=== PATIENT | male | born 1955 | race Caucasian/White ===

== ENCOUNTER 2017-10-21 06:02 | Day surgery (SDC) | payer MEDICAID ==
[2017-10-13 11:53] VITALS: BMI 25.1
--- NOTE | 2017-10-20 16:15 | P.GSHP ---
History of Present Illness H&P Date: 10/20/17 Chief Complaint: Left inguinal hernia 61 yrs old male presents with left inguinal bulge. No obstruction or skin changes. Prior hernia repair ROS Additionally reports: Constitutional: No fever, chills or rigors. No weight loss or loss of appetite. HEENT: No difficulty with hearing, vision and swallowing. Lymphatic: No axillary, inguinal and cervical swellings. Endocrine: No thyroid disorders. Denies history of diabetes. Respiratory: No chest pain, shortness of breath, and cough. No hemoptysis. Cardiovascular: No palpitations, irregular HR Gastrointestinal: Has heartburn. No change in bowel habits. No nausea or vomiting. Genitourinary: No increase in urinary frequency or urgency. No hematuria. Musculoskeletal: Has back pain, joint stiffness or pain. Neurologic: No history of seizure disorder and headaches. Psychiatric: Denies depression or anxiety . No suicidal ideation. Hematologic: Denies any abnormal mucosal bleeding or easy bruising. Physical Exam Patient is a 61-year-old male. Constitutional: General Appearance: healthy-appearing, well-nourished, and well- developed. Level of Distress: NAD. Ambulation: ambulating normally. Psychiatric: Insight: good judgement. Mental Status: normal mood and affect and active and alert. Orientation: to time, place, and person. Memory: recent memory normal and remote memory normal. Head: Head: normocephalic and atraumatic. Eyes: Lids and Conjunctivae: no discharge or pallor and non-injected. Pupils: PERRLA. EOM: EOMI. Sclerae: non-icteric. ENMT: Oropharynx: moist mucous membranes. Lungs: Respiratory effort: no dyspnea. Percussion: no dullness, flatness, or hyperresonance. Auscultation: no wheezing, rales/crackles, or rhonchi and breath sounds normal, good air movement, and CTA except as noted. Cardiovascular: Heart Auscultation: normal S1 and S2 and RRR. Abdomen: Bowel Sounds: normal. Inspection and Palpation: no tenderness, guarding , masses, rebound tenderness, or CVA tenderness and soft and non-distended. Liver: non-tender and no hepatomegaly. Spleen: non-tender and no splenomegaly. Hernia: inguinal L. Musculoskeletal:: Motor Strength and Tone: normal and normal tone. Joints, Bones , and Muscles: normal movement of all extremities. Extremities: no cyanosis or edema. Neurologic: Gait and Station: normal gait and station. Cranial Nerves: grossly intact. Skin: Inspection and palpation: no rash or lesions. Assessment / Plan 1. Left inguinal hernia 2. Informed consent obtained from the patient after explaining the risks, benefits and potential complications of laparoscopic inguinal hernia including bleeding, infection, bruising, DVT and recurrence and possibility of converting to open 3. Patient demonstrated understanding of the procedure and agreed to undergo robotic assist lap left inguinal hernia repair with mesh possible bilateral 4. Expected post op course discussed including no heavy lifting >10 lbs for 6 weeks post surgery Preop orders: 1. Ancef 2 gm IVPB x1 2. Bilateral lower extremity SCDs 3. Heparin 5000 Units SQ injection x1 Past Medical History Past Medical History: Cancer, GERD/Reflux, Hypertension, Sleep Apnea/CPAP/BIPAP Additional Past Medical History / Comment(s): hx. prostate cancer 2008, DDD, had surg. for sleep apnea History of Any Multi-Drug Resistant Organisms: None Reported Past Surgical History: Appendectomy, Hernia Repair, Orthopedic Surgery, Prostate Surgery, Tonsillectomy Additional Past Surgical History / Comment(s): UPP for sleep apnea, radical prostatectomy, urethral sling, thumb surg., deviated septum Past Anesthesia/Blood Transfusion Reactions: No Reported Reaction Smoking Status: Former smoker - Past Family History Father Family Medical History: Cancer Mother Family Medical History: Congestive Heart Failure (CHF), CVA/TIA Medications and Allergies Home Medications Medication Instructions Recorded Confirmed Type Ascorbic Acid [Vitamin C] 500 mg PO DAILY 10/13/17 10/21/17 History Cholecalciferol [Vitamin D3] 1,000 unit PO DAILY 10/13/17 10/21/17 History Cyanocobalamin [Vitamin B-12] 500 mcg PO DAILY 10/13/17 10/21/17 History Losartan [Cozaar] 25 mg PO DAILY 10/13/17 10/21/17 History Docusate [Colace] 100 mg PO BID #30 capsule 10/19/17 Rx Hydrocodone/Acetaminophen [[place] 1 each PO Q6HR PRN #20 tab 10/19/17 Rx 5-325] Allergies Allergy/AdvReac Type Severity Reaction Status Date / Time No Known Allergies Allergy Verified 10/13/17 11:09
[~2017-10-21 06:02] MED LIST: HEPARIN SODIUM,PORCINE 5,000 UNIT/ML 1 ML VIAL SQ ONE; HYDROmorphone 0.5 MG/0.5 ML SYRINGE IVP PRN; MORPHINE SULFATE 4 MG/ML SYRINGE IV PRN; ceFAZolin IN SWFI 2 GM/20 ML SYRINGE IVP ONE
[2017-10-21 06:34] VITALS: RESP 16
[2017-10-21] MEDS ORDERED: LIDOCAINE 1% 20 ML VIAL (10MG/ML) FOR IV START INTRADERMA ONE (06:56)
[2017-10-21] MEDS: LACTATED RINGERS 1,000 ML IV SCH ×2 (06:57→06:58)
[2017-10-21] MEDS ORDERED: DEXAMETHASONE SOD PHOSPHATE 10 MG/ML 1 ML VIAL IV ONE (06:58)
[2017-10-21] MEDS ORDERED: SCOPOLAMINE 1.5MG/72HR PATCH TRANSDERM ONE (07:00)
[2017-10-21] MEDS ORDERED: ONDANSETRON 4 MG/2 ML VIAL IVP ONE (07:00)
[2017-10-21] MEDS ORDERED: ePHEDrine SULFATE/0.9% NACL/PF 50 MG/5 ML SYRINGE IV ONE (07:34)
[2017-10-21] MEDS ORDERED: fentaNYL (PF) 50 MCG/ML 2 ML AMP ONE (07:34)
[2017-10-21] MEDS ORDERED: ROCURONIUM BROMIDE 10 MG/ML 10 ML VIAL IV ONE (07:34)
[2017-10-21] MEDS ORDERED: SUCCINYLCHOLINE CHLORIDE 100 MG/5 ML SYR IV ONE (07:34)
[2017-10-21] MEDS ORDERED: MIDAZOLAM 2 MG/2 ML VIAL ONE (07:34)
[2017-10-21] MEDS ORDERED: NEOSTIGMINE 1 MG/ML 10 ML VIAL ONE (07:34)
[2017-10-21] MEDS ORDERED: GLYCOPYRROLATE 0.2 MG/ML 2 ML VIAL ONE (07:34)
[2017-10-21] MEDS ORDERED: LIDOCAINE 1% INJ 10MG/ML (20 ML MDV) ONE (07:34)
[2017-10-21] MEDS ORDERED: PROPOFOL 10 MG/ML 20 ML VIAL IV ONE (07:34)
[2017-10-21 07:51] LABS: Anion Gap 11 mmol/L; Blood Urea Nitrogen 15 mg/dL (9-20); Calcium 10.2 mg/dL (8.4-10.2); Carbon Dioxide 23 mmol/L (22-30); Chloride 108 mmol/L (98-107); Glucose 102 mg/dL (74-99); Potassium 4.3 mmol/L (3.5-5.1); Sodium 142 mmol/L (137-145)
[2017-10-21] MEDS ORDERED: BUPIVACAINE (PF) 0.25% 30 ML VIAL SQ ONE ×2 (08:24)
[2017-10-21 08:31] LABS: Basophils # (A) 0.1 k/uL (0-0.2); Basophils % (A) 1 %; Eosinophils # (A) 0.2 k/uL (0-0.7); Eosinophils % (A) 4 %; HCT 39.6 % (39.0-53.0); HGB 13.6 gm/dL (13.0-17.5); Lymphocytes # (A) 1.6 k/uL (1.0-4.8); Lymphocytes % (A) 27 %; MCH 29.8 pg (25.0-35.0); MCHC 34.4 g/dL (31.0-37.0); MCV 86.6 fL (80.0-100.0); Mean Platelet Volume 6.9; Monocytes # (A) 0.3 k/uL (0-1.0); Monocytes % (A) 5 %; Neutrophils # (A) 3.6 k/uL (1.3-7.7); Neutrophils % (A) 61 %; Platelet Count 156 k/uL (150-450); RBC 4.57 m/uL (4.30-5.90); RDW 13.2 % (11.5-15.5); WBC 5.9 k/uL (3.8-10.6)
[2017-10-21] MEDS ORDERED: LACTATED RINGERS 1,000 ML IV ONE (09:25)
[2017-10-21 10:14] VITALS: TEMP 97.2
--- NOTE | 2017-10-21 10:40 | P.OP ---
Date of Procedure: 10/21/17 Preoperative Diagnosis: Left inguinal hernia H/O prostate cancer S/P radical nephrectomy H/O urinary incontinence S/P bladder sling Postoperative Diagnosis: Same Procedure(s) Performed: Robotic assist laparoscopic left inguinal hernia repair, initial, no obstruction or incarceration with mesh Implants: COVIDIEN PROGRIP 10 x 15 cm Reference #[id number] Lot number # [id number] Anesthesia: GETA, local Surgeon: Jessica Lui Pathology: none sent Condition: stable Disposition: PACU Indications for Procedure: 61 years old male presents with left reducible inguinal hernia. Informed consent obtained and patient elected to undergo robotic-assisted laparoscopic left inguinal hernia repair possible bilateral. Operative Findings: Left indirect inguinal hernia Description of Procedure: The patient was brought to the operating room and placed in supine position. General anesthesia with endotracheal intubation was performed as per anesthesia team. Both arms were tucked against the abdominal wall and a shunt was positioned in lithotomy using yellowfin stirrups. A azevedo catheter was inserted under sterile aseptic precautions. Chlorhexidine was used to prep the skin followed by application of sterile drapes and Ioban dressing. A timeout was performed to verify correct patient, correct procedure and correct side. Patient was confirmed to receive perioperative IV antibiotics, subcutaneous heparin 5000 units and bilateral SCDs were placed. A 2 mm skin incision was made in the left subcostal area and Veress needle was inserted to establish pneumoperitoneum to a pressure of 15 mmHg. A 1.5 cm supraumbilical incision was made which was deepened through the subcutaneous tissue . Two additional 8 mm skin incisions were made on either side of the midline approximately 8 cm away. A 5 mm 30 laparoscope was used to enter the peritoneum using direct Optiview technique. A 12 mm robotic trocar was inserted in the supraumbilical area and 8 mm robotic trocars were inserted on either side of the midline. The patient was placed in Trendelenburg position and the robot was brought in between the legs. The robotic arms including the camera arm were docked on the trocars. The robotic prograsp and monopolar scissors were introduced via arm 1 and 2 respectively. Upon inspection of the peritoneal cavity, left indirect inguinal hernia was identified. The sigmoid colon was adhered to the hernia and was reduced using gentle traction and countertraction.The gold anatomical landmarks including the pubic symphysis, median and medial umbilical ligaments and bilateral epigastric vessels were identified. Using monopolar scissors a peritoneal flap was created extending medially from the median umbilical ligament and laterally to the direct hernia space. Using gentle traction and countertraction the flap was developed . Loose fibrofatty tissue was bluntly dissected. Medially the dissection was carried along the Alfredo's ligament till pubic tubercle was identified. Care was taken to stay away from the urinary bladder. Adhesions from prior surgery which as easily dissected. Dissection was carried out to leave the epigastric vessels against the anterior abdominal wall and laterally beyond the hernia defect. The indirect hernia sac was completely reduced. The iliofemoral vessels were identified. The peritoneal reflection overlying the spermatic cord was also dissected off. Care was taken not to injure any gonadal vessels or spermatic cord. Enough inferior dissection was carried out 2 cm below the hernia defect. No direct hernia noted. 10x15 cm Progrip mesh was rolled and introduced through the 12mm camera port. The right mesh was placed in the preperitoneal cavity with green portion overlying the pubic tubercle . The mesh was rolled upwards so that the mesh covered the direct , indirect inguinal hernia and the femoral hernia space without any kinks or folds. The peritoneal flap was then sutured to the cut edge of the peritoneum using continuous 3-0 Vicryl sutures. The hernia sac was completely reduced and the mesh lay flat without any kinks or folds. The robotic arms were then undocked and 30 degree laparoscope was inserted. All the needles were removed from the abdominal cavity. The 8mm camera trocar site was closed with 2 transfascial sutures of 0 Vicryl. The sponge, instrument and needle count were correct x2. The skin was closed with interrupted sutures of 4-0 Monocryl. Dermabond skin glue was applied. Azevedo catheter was removed and scrotum was palpated to confirm the position of the testicles. The patient tolerated the procedure well and was taken to post anesthesia care unit in stable condition
--- NOTE | 2017-10-21 11:27 | P.ONQ ---
Anesthesiology Proc Note - PNB - Peripheral Nerve Block Performed Left Other (see comment) Single Time Out Performed: Yes (Left Transverse Abdominis Plane Block) Procedure Start Time: 11:12 Procedure Stop Time: :21 Indication: Acute Post-Operative Pain, Requested by physician Sedation Type: Sedate with meaningful contact maintained Preparation: Sterile Prep Catheter: None Needle Types: Facet Needle Size: 50mm (2") Needle Gauge: 21 Technique: Ultrasound Injectate: 0.5% Ropivacaine (see comment for volume) (30 mls Ropivacaine 0.5%) Blood Aspirated: No Pain Paresthesia on Injection Noted: No Resistance on Injection: Normal Events: Uneventful and Well Tolerated
[2017-10-21 12:09] VITALS: BP 138/83; PULSE 70
== END 2017-10-21 12:49 | disposition home or self-care (01) ==
LOC: OR 06:02 → EDSTATUS 07:30 → OR 12:49
PROVIDERS: ATTEND Surgery
DX: K40.90 Unilateral inguinal hernia, without obstruction or gangrene, not specified as recurrent (principal); Z85.46 Personal history of malignant neoplasm of prostate; Z90.79 Acquired absence of other genital organ(s); Z90.5 Acquired absence of kidney; Z87.448 Personal history of other diseases of urinary system; I10 Essential (primary) hypertension; K21.9 Gastro-esophageal reflux disease without esophagitis; G47.30 Sleep apnea, unspecified; Z79.899 Other long term (current) drug therapy; Z87.891 Personal history of nicotine dependence
CPT/HCPCS: 80048; 85025; 49650; C1781; J2250; J1644; J1100; J2710; J2405; J2001; J3010; J0330; J2704

== ENCOUNTER 2018-01-06 07:57 | Emergency (ER) | payer MEDICAID ==
[2018-01-06] MEDS ORDERED: SODIUM CHLORIDE 0.9% 500 ML IV STA (08:10)
--- NOTE | 2018-01-06 08:13 | ED ---
General Adult HPI - General Chief complaint: Weakness Stated complaint: Dizziness Time Seen by Provider: 01/06/18 08:03 Source: patient, RN notes reviewed Mode of arrival: ambulatory Limitations: no limitations - History of Present Illness Initial comments: 62-year-old male presenting for evaluation of lightheadedness. Patient states he feels like he had too much alcohol. Checked his blood pressure at home and noted that his blood pressures in the 180s over 110s. He is concerned because his recently had a stroke and is currently going through rehab. Patient does have past medical history of hypertension, he is currently on losartan, also he takes baby aspirin. Other than hypertension, no significant medical problems. States he's had some blurry vision. No headache. No chest pain. No abdominal pain. No difficulty breathing. No vomiting or diarrhea. No fever or chills. Patient denies any numbness or tingling, no focal weakness. - Related Data Home Medications Medication Instructions Recorded Confirmed Ascorbic Acid [Vitamin C] 500 mg PO DAILY 10/13/17 01/06/18 Cholecalciferol [Vitamin D3] 1,000 unit PO DAILY 10/13/17 01/06/18 Cyanocobalamin [Vitamin B-12] 500 mcg PO DAILY 10/13/17 01/06/18 Losartan [Cozaar] 25 mg PO DAILY 10/13/17 01/06/18 Aspirin EC [Ecotrin Low Dose] 81 mg PO DAILY 01/06/18 01/06/18 [place]-3 Fatty Acids/Fish Oil [Fish 1 cap PO DAILY 01/06/18 01/06/18 Oil 1,000 mg Softgel] Previous Rx's Medication Instructions Recorded Losartan [Cozaar] 50 mg PO DAILY #30 tab 01/06/18 Allergies Allergy/AdvReac Type Severity Reaction Status Date / Time No Known Allergies Allergy Verified 01/06/18 08:27 Review of Systems ROS Statement: Those systems with pertinent positive or pertinent negative responses have been documented in the HPI. ROS Other: All systems not noted in ROS Statement are negative. Past Medical History Past Medical History: Cancer, GERD/Reflux, Hypertension, Sleep Apnea/CPAP/BIPAP Additional Past Medical History / Comment(s): hx. prostate cancer 2008, DDD, had surg. for sleep apnea History of Any Multi-Drug Resistant Organisms: None Reported Past Surgical History: Appendectomy, Hernia Repair, Orthopedic Surgery, Prostate Surgery, Tonsillectomy Additional Past Surgical History / Comment(s): UPP for sleep apnea, radical prostatectomy, urethral sling, thumb surg., deviated septum Past Anesthesia/Blood Transfusion Reactions: No Reported Reaction Past Psychological History: No Psychological Hx Reported Smoking Status: Former smoker Past Alcohol Use History: None Reported, Daily Past Drug Use History: None Reported - Past Family History Father Family Medical History: Cancer Mother Family Medical History: Congestive Heart Failure (CHF), CVA/TIA General Exam Limitations: no limitations General appearance: alert, in no apparent distress Head exam: Present: atraumatic, normocephalic Eye exam: Present: normal appearance, PERRL, EOMI. Absent: nystagmus ENT exam: Present: normal exam Neck exam: Present: normal inspection. Absent: tenderness, meningismus Respiratory exam: Present: normal lung sounds bilaterally. Absent: respiratory distress, wheezes Cardiovascular Exam: Present: regular rate, normal rhythm GI/Abdominal exam: Present: soft. Absent: distended, tenderness, guarding Extremities exam: Present: normal inspection, normal capillary refill. Absent: pedal edema Neurological exam: Present: alert, oriented X3, CN II-XII intact, normal gait, other (No ataxia). Absent: motor sensory deficit Psychiatric exam: Present: normal affect, normal mood, anxious Skin exam: Present: warm, dry, intact. Absent: cyanosis, diaphoretic Course Vital Signs 01/06/18 01/06/18 08:00 09:22 Temperature 98.1 F Pulse Rate 82 62 Respiratory 18 16 Rate Blood Pressure 240/111 178/87 O2 Sat by Pulse 99 100 Oximetry EKG Findings - EKG Comments: EKG Findings:: EKG, sinus bradycardia, ventricular rate of 56, [place] interval 182, QRS duration 118, QTC [address] segment elevation or depression Medical Decision Making - Medical Decision Making 62-year-old male presenting with elevated blood pressure and some dizziness. Patient's exam is nonrevealing. Nonfocal neurologic exam. He is overall well- appearing. Patient's blood pressure is quite elevated 240/110 on arrival. This is down trending with no specific treatment, repeat is 178 systolic. Laboratory studies are obtained, white blood cell count normal, stable hemoglobin, normal electrolytes. Troponin is negative. Chest x-ray is negative for focal pneumonia, normal mediastinum. CT shows chronic small vessel ischemia with no acute cranial hemorrhage or acute pathology. Patient is given additional 25 mg of losartan. He will be switched from 25 mg to 50 mg daily. He will maintain a blood pressure log and follow up with his primary care physician. Repeat blood pressure 157/86 - Lab Data Result diagrams: 01/06/18 08:27 01/06/18 08:27 Lab Results 01/06/18 01/06/18 01/06/18 Range/Units 08:27 08:27 08:27 WBC 5.9 (3.8-10.6) k/uL RBC 5.18 (4.30-5.90) m/uL Hgb 14.8 (13.0-17.5) gm/dL Hct 40.5 (39.0-53.0) % MCV 78.2 L (80.0-100.0) fL MCH 28.6 (25.0-35.0) pg MCHC 36.6 (31.0-37.0) g/dL RDW 12.8 (11.5-15.5) % Plt Count 203 (150-450) k/uL Neutrophils % 58 % Lymphocytes % 32 % Monocytes % 5 % Eosinophils % 3 % Basophils % 0 % Neutrophils # 3.5 (1.3-7.7) k/uL Lymphocytes # 1.9 (1.0-4.8) k/uL Monocytes # 0.3 (0-1.0) k/uL Eosinophils # 0.2 (0-0.7) k/uL Basophils # 0.0 (0-0.2) k/uL PT (9.0-12.0) sec INR (<1.2) APTT (22.0-30.0) sec Sodium 142 (137-145) mmol/L Potassium 4.5 (3.5-5.1) mmol/L Chloride 102 (98-107) mmol/L Carbon Dioxide 29 (22-30) mmol/L Anion Gap 11 mmol/L BUN 20 (9-20) mg/dL Creatinine 0.90 (0.66-1.25) mg/dL Est GFR (CKD-EPI)AfAm >90 (>60 ml/min/1.73 sqM) Est GFR (CKD-EPI)NonAf >90 (>60 ml/min/1.73 sqM) Glucose 109 H (74-99) mg/dL Plasma Lactic Acid Arnold (0.7-2.0) mmol/L Calcium 10.3 H (8.4-10.2) mg/dL Magnesium 1.9 (1.6-2.3) mg/dL Total Bilirubin 0.8 (0.2-1.3) mg/dL AST 26 (17-59) U/L ALT 25 (21-72) U/L Alkaline Phosphatase 66 (38-126) U/L Total Creatine Kinase 94 (55-170) U/L CK-MB (CK-2) 1.4 (0.0-2.4) ng/mL CK-MB (CK-2) Rel Index 1.5 Troponin I <0.012 (0.000-0.034) ng/mL Total Protein 6.8 (6.3-8.2) g/dL Albumin 4.3 (3.5-5.0) g/dL 01/06/18 01/06/18 Range/Units 08:27 08:27 WBC (3.8-10.6) k/uL RBC (4.30-5.90) m/uL Hgb (13.0-17.5) gm/dL Hct (39.0-53.0) % MCV (80.0-100.0) fL MCH (25.0-35.0) pg MCHC (31.0-37.0) g/dL RDW (11.5-15.5) % Plt Count (150-450) k/uL Neutrophils % % Lymphocytes % % Monocytes % % Eosinophils % % Basophils % % Neutrophils # (1.3-7.7) k/uL Lymphocytes # (1.0-4.8) k/uL Monocytes # (0-1.0) k/uL Eosinophils # (0-0.7) k/uL Basophils # (0-0.2) k/uL PT 9.9 (9.0-12.0) sec INR 1.0 (<1.2) APTT 23.0 (22.0-30.0) sec Sodium (137-145) mmol/L Potassium (3.5-5.1) mmol/L Chloride (98-107) mmol/L Carbon Dioxide (22-30) mmol/L Anion Gap mmol/L BUN (9-20) mg/dL Creatinine (0.66-1.25) mg/dL Est GFR (CKD-EPI)AfAm (>60 ml/min/1.73 sqM) Est GFR (CKD-EPI)NonAf (>60 ml/min/1.73 sqM) Glucose (74-99) mg/dL Plasma Lactic Acid Arnold 1.6 (0.7-2.0) mmol/L Calcium (8.4-10.2) mg/dL Magnesium (1.6-2.3) mg/dL Total Bilirubin (0.2-1.3) mg/dL AST (17-59) U/L ALT (21-72) U/L Alkaline Phosphatase (38-126) U/L Total Creatine Kinase (55-170) U/L CK-MB (CK-2) (0.0-2.4) ng/mL CK-MB (CK-2) Rel Index Troponin I (0.000-0.034) ng/mL Total Protein (6.3-8.2) g/dL Albumin (3.5-5.0) g/dL Disposition Clinical Impression: Hypertension Disposition: HOME SELF-CARE Condition: Fair Instructions: Hypertension (ED) Prescriptions: Losartan [Cozaar] 50 mg PO DAILY #30 tab Referrals: Arian Oseguera MD [Primary Care Provider] - 1-2 days Time of Disposition: 10:21
[2018-01-06 08:39] LABS: Basophils % (A) 0 %; Eosinophils # (A) 0.2 k/uL (0-0.7); Eosinophils % (A) 3 %; HCT 40.5 % (39.0-53.0); HGB 14.8 gm/dL (13.0-17.5); Lymphocytes # (A) 1.9 k/uL (1.0-4.8); Lymphocytes % (A) 32 %; MCH 28.6 pg (25.0-35.0); MCHC 36.6 g/dL (31.0-37.0); MCV 78.2 fL (80.0-100.0); Mean Platelet Volume 6.6; Monocytes # (A) 0.3 k/uL (0-1.0); Monocytes % (A) 5 %; Neutrophils # (A) 3.5 k/uL (1.3-7.7); Neutrophils % (A) 58 %; Platelet Count 203 k/uL (150-450); RBC 5.18 m/uL (4.30-5.90); RDW 12.8 % (11.5-15.5); WBC 5.9 k/uL (3.8-10.6)
[2018-01-06 08:51] LABS: Prothrombin Time 9.9 sec (9.0-12.0)
[2018-01-06 08:53] LABS: ALT 25 U/L (21-72); AST 26 U/L (17-59); Albumin 4.3 g/dL (3.5-5.0); Alkaline Phosphatase 66 U/L (38-126); Anion Gap 11 mmol/L; Blood Urea Nitrogen 20 mg/dL (9-20); Calcium 10.3 mg/dL (8.4-10.2); Carbon Dioxide 29 mmol/L (22-30); Chloride 102 mmol/L (98-107); Glucose 109 mg/dL (74-99); Magnesium 1.9 mg/dL (1.6-2.3); Potassium 4.5 mmol/L (3.5-5.1); Sodium 142 mmol/L (137-145); Total Bilirubin 0.8 mg/dL (0.2-1.3); Total Protein 6.8 g/dL (6.3-8.2)
--- NOTE | 2018-01-06 08:58 | CT ---
EXAMINATION TYPE: CT brain wo con DATE OF EXAM: 01/06/2018 COMPARISON: NONE HISTORY: 62-year-old male Dizziness TECHNIQUE: Examination was done in axial plane without intravenous contrast. Coronal and sagittal r econstructions performed. CT DLP: 1090.4 mGycm Automated exposure control for dose reduction was used. FINDINGS: There is no evidence of acute intracranial hemorrhage, acute ischemic changes, mass, mass-effect, or extra-axial fluid collection. There is no effacement of cerebral sulci or basal subarachnoid cister ns. There is no hydrocephalus. There is no midline shift. Ramires-white matter distinction is preserv ed. Mild patchy white matter hypodensities likely relating to mild burden of chronic small vessel ischemi c disease. Partially empty sella incidentally noted. There is mucosal thickening left maxillary sinus. Patient's gaze is slightly divergent suggesting und erlying strabismus. IMPRESSION: No acute intracranial abnormality seen. Mild burden of chronic small vessel ischemic disease.
[2018-01-06 09:01] LABS: Creatine Kinase 94 U/L (55-170)
--- NOTE | 2018-01-06 09:10 | XR ---
EXAMINATION TYPE: XR chest 2V DATE OF EXAM: 01/06/2018 COMPARISON: 01/07/2009 INDICATION: Weakness, dizziness TECHNIQUE: Frontal and lateral views of the chest are obtained. FINDINGS: The heart size is normal. The pulmonary vasculature is normal. The lungs are clear. IMPRESSION: 1. No acute pulmonary process.
[2018-01-06 09:14] LABS: Creatine Kinase MB 1.4 ng/mL (0.0-2.4); Troponin I <0.012 ng/mL (0.000-0.034)
[2018-01-06 09:23] VITALS: RESP 16
[2018-01-06] MEDS ORDERED: LOSARTAN 25 MG TAB PO STA (09:53)
[2018-01-06 11:11] VITALS: BP 158/76; PULSE 78; TEMP 97.8
== END 2018-01-06 11:09 | disposition home or self-care (01) ==
LOC: EC 07:57
DX: I10 Essential (primary) hypertension (principal); I67.82 Cerebral ischemia; G47.30 Sleep apnea, unspecified; Z99.89 Dependence on other enabling machines and devices; Z85.46 Personal history of malignant neoplasm of prostate; Z87.891 Personal history of nicotine dependence; Z79.82 Long term (current) use of aspirin; Z79.899 Other long term (current) drug therapy
CPT/HCPCS: 36415; 70450; 71046; 80053; 82550; 82553; 83605; 83735; 84484; 85025; 85610; 85730; 93005; 96360; 96361; 99285

== ENCOUNTER → 2022-12-29 | Outpatient (CLI) | payer MEDICARE ==
--- NOTE | 2022-12-29 07:30 | US ---
EXAMINATION TYPE: US duplex aorta DATE OF EXAM: 12/29/2022 COMPARISON: NONE CLINICAL HISTORY: Z13.6 Screening for cardiovascular disorders. TECHNIQUE: Multiple sonographic images of the abdominal aorta are obtained. FINDINGS: EXAM MEASUREMENTS: Abdominal Aorta: Proximal: 2.3cm Mid: 1.9cm Distal: 1.8cm Bifurcation: EVELYN 1.1cm FELIX 1.0cm IMPRESSION: 1. No suspicious fusiform prominence or aneurysmal dilatation on screening ultrasound
== END | disposition home or self-care (01) ==
LOC: RADUSWWP 06:59
PROVIDERS: ATTEND Family Medicine
DX: Z13.6 Encounter for screening for cardiovascular disorders (principal)
CPT/HCPCS: 93979

== ENCOUNTER 2023-01-31 09:14 | Day surgery (SDC) | payer MEDICARE, OTHER ==
--- NOTE | 2023-01-31 08:12 | P.GSHP ---
History of Present Illness H&P Date: 01/31/23 CHIEF COMPLAINT: GERD and colon screen HISTORY OF PRESENT ILLNESS: The patient is a 67-year-old male who presents with gastroesophageal reflux disease and need for colon screen. Upper and lower endoscopy were offered for further evaluation and management. PAST MEDICAL HISTORY: Please see list. PAST SURGICAL HISTORY: Please see list. MEDICATIONS: Please see list. ALLERGIES: Please see list. SOCIAL HISTORY: No illicit drug use FAMILY HISTORY: No reports of Crohn disease or ulcerative colitis. REVIEW OF ORGAN SYSTEMS: CONSTITUTIONAL: No reports of fevers or chills. GI: Denies any blood in stools or constipation. PHYSICAL EXAM: VITAL SIGNS: Stable GENERAL: Well-developed pleasant in no acute distress. HEENT: No scleral icterus. Extraocular movements grossly intact. Moist buccal mucosa. NECK: Supple without lymphadenopathy. CHEST: Unlabored respirations. Equal bilateral excursions. CARDIOVASCULAR: Regular rate and rhythm. Distal 2+ pulses. ABDOMEN: Soft, nondistended. MUSCULOSKELETAL: No clubbing, cyanosis, or edema. ASSESSMENT: 1. Gastroesophageal reflux disease 2. Colon screen. PLAN: 1. Recommend proceeding with an upper and lower endoscopy Past Medical History Past Medical History: Cancer, GERD/Reflux, Hypertension, Sleep Apnea/CPAP/BIPAP Additional Past Medical History / Comment(s): hx. prostate cancer 2009, DDD, had surg. for sleep apnea History of Any Multi-Drug Resistant Organisms: None Reported Past Surgical History: Appendectomy, Hernia Repair, Orthopedic Surgery, Prostate Surgery, Tonsillectomy Additional Past Surgical History / Comment(s): UPP for sleep apnea, radical prostatectomy, urethral sling, thumb surg., deviated septum Past Anesthesia/Blood Transfusion Reactions: No Reported Reaction Smoking Status: Former smoker - Past Family History Father Family Medical History: Cancer Mother Family Medical History: Congestive Heart Failure (CHF), CVA/TIA Medications and Allergies Home Medications Medication Instructions Recorded Confirmed Type Ascorbic Acid [Vitamin C] 500 mg PO DAILY 10/13/17 01/27/23 History Cholecalciferol [Vitamin D3] 1,000 unit PO DAILY 10/13/17 01/27/23 History Losartan [Cozaar] 100 mg PO DAILY 01/27/23 01/27/23 History New Balance (Unknown) 1 tab PO DAILY 01/27/23 01/27/23 History Rosuvastatin [Crestor] 10 mg PO DAILY 01/27/23 01/27/23 History Allergies Allergy/AdvReac Type Severity Reaction Status Date / Time No Known Allergies Allergy Verified 01/27/23 09:07
[2023-01-31 09:33] VITALS: TEMP 97.7
[2023-01-31] MEDS ORDERED: LACTATED RINGERS 1,000 ML IV ONE (09:40)
[2023-01-31] MEDS ORDERED: PROPOFOL 10 MG/ML 20 ML VIAL IV ONE (09:42)
[2023-01-31] MEDS ORDERED: LIDOCAINE 2% INJ 20 MG/ML (2 ML VIAL) ONE (09:42)
--- NOTE | 2023-01-31 10:28 | P.PCN ---
Date of Procedure: 01/31/23 Description of Procedure: PREOPERATIVE DIAGNOSIS: NSAID-induced gastritis POSTOPERATIVE DIAGNOSIS: Acute gastritis with bleeding Esophagitis, erosive Duodenitis Gastroesophageal reflux disease Diaphragmatic hiatal hernia OPERATION: Esophagogastroduodenoscopy with biopsies along antrum, duodenum and esophagus SURGEON: Shaista Vaughan MD ANESTHESIA: MAC. INDICATIONS: The patient is a 67-year-old male who presents with gastritis of bleeding. Benefits and risks of the procedure were described. Informed consent was obtained. DESCRIPTION: The patient was brought into the endoscopy suite and laid in the left lateral decubitus position. An Olympus gastroscope was passed along the posterior oropharynx down to the distal esophagus where the squamocolumnar junction was encountered at 37 cm from the incisors. The stomach was entered and no bile reflux was found. Additional findings are listed below. Biopsies with cold forceps were obtained of the antrum. The first through third portion of the duodenum was examined. Retroflexion of the scope confirmed Hill grade 3 lower esophageal valve. The squamocolumnar junction demonstrated LA grade B erosive esophagitis. The stomach was desufflated. The patient tolerated the procedure well. FINDINGS: Squamocolumnar junction 37 cm from the incisors. Diaphragmatic hiatus at 41 cm. Hiatal hernia, 4 cm Hill grade 3 lower esophageal valve. LA grade C erosive esophagitis. Duodenitis and biopsies obtained Chronic gastritis with recent bleed RECOMMENDATIONS: Omeprazole 40 mg daily Carafate 1 g twice a day Upper endoscopy as needed. Discontinue NSAIDs
[2023-01-31 10:54] VITALS: BP 157/78; PULSE 52; RESP 17
--- NOTE | 2023-01-31 11:18 | P.PCN ---
Date of Procedure: 01/31/23 Description of Procedure: PREOPERATIVE DIAGNOSIS: Personal history of colon polyps Colonoscopy screening POSTOPERATIVE DIAGNOSIS: Tubular adenoma hepatic flexure Severe sigmoid diverticulosis OPERATION: Colonoscopy to the ileocecal valve and appendiceal orifice, cecum Colonoscopy with hot snare polypectomy SURGEON: Shaista Vaughan MD. ANESTHESIA: MAC. INDICATIONS: The patient is an 67-year-old male who presents personal history of colon polyps. Last colonoscopy 5 years. Benefits and risks were described and informed consent was obtained. DESCRIPTION OF PROCEDURE: The patient had undergone Sutab prep. The patient had been brought into the operating room and laid in the left lateral decubitus position. After adequate intravenous sedation, the rectum was examined with 2% lidocaine jelly. The prostate was unremarkable. No external hemorrhoids were encountered. The rectal tone was within normal limits. No lesions were palpated in the rectal vault. An Olympus colonoscope was advanced until the cecum, ileocecal valve and appendiceal orifice were clearly viewed. The prep was fair. Severe sigmoid diverticulosis was encountered with redundant sigmoid colon. Colonic polyps were found and removed. No evidence of focal colitis was found. Retroflexion of the scope demonstrated grade 1 internal hemorrhoids without active bleeding or inflammation. The colon was desufflated. The patient had tolerated the procedure well. Withdrawal time was over 6 minutes. FINDINGS: Aronchick preparation quality scale 2+ (1-5) Internal hemorrhoids, grade 1 No external hemorrhoids, grade No arteriovenous malformations Sigmoid diverticulosis, severe with redundant sigmoid colon requiring abdominal wall pressure Removal of 1 polyps: - Snare polypectomy hepatic flexure, 6 mm tubulovillous adenoma No focal colitis. RECOMMENDATIONS: Repeat in 3 years, 2025 Plan - Discharge Summary Discharge Rx Participant: No New Discharge Prescriptions: Continue Cholecalciferol [Vitamin D3 (25 Mcg = 1000 Iu)] 1,000 unit PO DAILY Ascorbic Acid [Vitamin C] 500 mg PO DAILY Losartan [Cozaar] 100 mg PO DAILY Rosuvastatin [Crestor] 10 mg PO DAILY New Balance (Unknown) 1 tab PO DAILY Discharge Medication List Ascorbic Acid [Vitamin C] 500 mg PO DAILY 10/13/17 [History] Cholecalciferol [Vitamin D3 (25 Mcg = 1000 Iu)] 1,000 unit PO DAILY 10/13/17 [History] Losartan [Cozaar] 100 mg PO DAILY 01/27/23 [History] New Balance (Unknown) 1 tab PO DAILY 01/27/23 [History] Rosuvastatin [Crestor] 10 mg PO DAILY 01/27/23 [History] Follow up Appointment(s)/Referral(s): Shaista Vaughan MD [STAFF PHYSICIAN] - 03/08/23 9:15 am Patient Instructions/Handouts: *Surgery [facility] - (Anesthesia) Discharge Instructions Outpatient Surgery, Diverticulosis (DC), Colorectal Polyps (GEN), Diverticulosis Diet (GEN), Colonoscopy (DC), Upper Endoscopy (DC) Activity/Diet/Wound Care/Special Instructions: Repeat colonoscopy 3 years, 2025 Discharge Disposition: HOME SELF-CARE
== END 2023-01-31 11:17 | disposition home or self-care (01) ==
LOC: ORWHC2ENDO 09:14
PROVIDERS: ATTEND Surgery Plastic and Reconstructive Surgery
DX: Z12.11 Encounter for screening for malignant neoplasm of colon (principal); D12.3 Benign neoplasm of transverse colon; K21.00 Gastro-esophageal reflux disease with esophagitis, without bleeding; K29.90 Gastroduodenitis, unspecified, without bleeding; K44.9 Diaphragmatic hernia without obstruction or gangrene; I10 Essential (primary) hypertension; G47.30 Sleep apnea, unspecified; Z85.46 Personal history of malignant neoplasm of prostate; Z90.49 Acquired absence of other specified parts of digestive tract; Z90.79 Acquired absence of other genital organ(s); Z87.891 Personal history of nicotine dependence; Z82.49 Family history of ischemic heart disease and other diseases of the circulatory system; Z82.3 Family history of stroke; Z79.899 Other long term (current) drug therapy
CPT/HCPCS: 45385; 43239; J2704; J2001; 88305

== ENCOUNTER → 2025-01-07 | Outpatient (CLI) | payer MEDICARE, OTHER ==
--- NOTE | 2025-01-07 15:31 | MR ---
EXAMINATION TYPE: MR shoulder RT wo con DATE OF EXAM: 01/07/2025 1:58 PM COMPARISON: Outside right shoulder x-ray January 01, 2025 CLINICAL INDICATION: Male, 69 years old with history of M25.511 SHOULDER PAIN, RT shoulder pain, wes ing, and difficulty raising arm x7 months, IV Contrast: cc (None if empty) TECHNIQUE: Multiplanar, multisequence imaging of the right shoulder is performed without contrast. FINDINGS: Rotator Cuff: Some increased signal in the distal infraspinatus tendon. More prominent increased sign al in the supraspinatus tendon with full-thickness tear measures 5 mm AP diameter on sagittal image 2 5 and 5 mm transversely coronal image 9. Heterogeneous increased signal in the subscapularis tendon. Rotator cuff muscle bulk is preserved. Acromioclavicular Joint: Moderate narrowing and mild spurring. Moderate to severe capsular hypertroph y. Loss of underlying fat plane noted. Glenohumeral Joint: Moderate size joint effusion. No significant spurring. Labrum: The labrum appears grossly intact given limitation of non-arthrogram study. Biceps Tendon: The long head of biceps is in normal location within bicipital groove. Increased signa l intracapsular portion is noted and near the labral anchor coronal image 11. Bone marrow signal: Subchondral cystic change anterior inferior osseous glenoid. This also present at the acromioclavicular joint. Other: No additional significant abnormality is appreciated. IMPRESSION: 1. Mild tendinosis of infraspinatus tendon. Moderate tendinosis of the subscapularis tendon. More pro minent tendinosis and partial tearing of the supraspinatus tendon. 2. Tendinosis/partial tearing of the intracapsular portion of long head of biceps tendon. 3. Fairly moderate to severe degenerative changes are present as detailed above. [facility], , 01/07/2025 3:29 PM
== END | disposition home or self-care (01) ==
LOC: RADMRIMAIN 13:04
PROVIDERS: ATTEND Orthopaedic Surgery
DX: M67.813 Other specified disorders of tendon, right shoulder (principal); M75.111 Incomplete rotator cuff tear or rupture of right shoulder, not specified as traumatic; M19.011 Primary osteoarthritis, right shoulder

== ENCOUNTER → 2025-02-04 | Outpatient (CLI) | payer MEDICARE, OTHER ==
[2025-02-04 15:34] LABS: Anion Gap 10.9 mmol/L (4.00-12.00); Carbon Dioxide 24.1 mmol/L (21.6-31.8); Potassium 4.4 mmol/L (3.5-5.5)
[2025-02-04 15:41] LABS: Basophils # (A) 0.03 X 10*3/uL (0.00-0.10); Basophils % (A) 0.4 %; Eosinophils # (A) 0.14 X 10*3/uL (0.04-0.35); HCT 41.3 % (39.6-50.0); HGB 13.8 g/dL (13.0-17.0); Lymphocytes # (A) 1.83 X 10*3/uL (0.90-5.00); Lymphocytes % (A) 25.6 %; MCH 27.6 pg (27.0-32.0); MCHC 33.4 g/dL (32.0-37.0); MCV 82.6 FL (80.0-97.0); Mean Platelet Volume 10.4 FL (9.5-12.2); Monocytes # (A) 0.57 X 10*3/uL (0.20-1.00); NRBC Per 100 WBC 0 X 10*3/uL (0.00-0.01); Neutrophils # (A) 4.54 X 10*3/uL (1.80-7.70); Neutrophils % (A) 63.4 %; Platelet Count 204 X 10*3/uL (140-440); RDW 12.8 % (11.5-14.5); WBC 7.15 X 10*3/uL (4.50-10.00)
== END | disposition home or self-care (01) ==
LOC: LABWHC1 10:59
PROVIDERS: ATTEND Orthopaedic Surgery
DX: M75.41 Impingement syndrome of right shoulder (principal)
CPT/HCPCS: 80051; 85025; 93005

== ENCOUNTER 2025-02-13 05:49 | Day surgery (SDC) | payer MEDICARE, OTHER ==
[2025-02-08 13:26] VITALS: BMI 25.1
--- NOTE | 2025-02-13 00:18 | HP ---
HISTORY AND PHYSICAL DATE OF SURGERY: 02/13/2025 HISTORY OF PRESENT ILLNESS: Gilmar Greco is a 69-year-old gentleman seen with progressive right shoulder pain. We discussed options. He elected to proceed with arthroscopy. Consents obtained. PAST MEDICAL HISTORY: Hypertension, diverticulitis. PAST SURGICAL HISTORY: Appendectomy, hand surgery, herniorrhaphy, tonsillectomy. MEDICATIONS: Daily medications are losartan, Advil. ALLERGIES: None. SOCIAL HISTORY: Denies tobacco use. PHYSICAL EVALUATION OF THE LEFT KNEE: Flexion is 140 degrees, abduction 120 degrees. External rotation is 40 degrees with pain and weakness. Tenderness along the anterolateral acromion, acromioclavicular joint rotator cuff tendon along the biceps tendon. Impingement positive in 90 degrees. Drop-arm sign is positive. Distal neurovascular exam is intact of right shoulder. IMAGING STUDIES: Right shoulder radiographs revealed a type 2 acromion, acromioclavicular joint, osteoarthritis, some cystic changes of the tuberosity. MRI of right shoulder rotator cuff tear, acromioclavicular joint, osteoarthritis and partial biceps tendon tear. IMPRESSION: 1. Right shoulder impingement with rotator cuff tear. 2. Right shoulder acromioclavicular joint osteoarthritis. 3. Right shoulder partial biceps tear. 4. Hypertension. PLAN: Right shoulder arthroscopy with subacromial decompression, arthroscopic rotator cuff repair, Radha procedure, biceps tenodesis, and debridement. MMODL / IJN: [id number] /
[2025-02-13] MEDS: DEXAMETHASONE SOD PHOSPHATE 4 MG/ML 1 ML VIAL IV ONE (06:50)
[2025-02-13] MEDS: LACTATED RINGERS 1,000 ML IV SCH (06:50)
[2025-02-13] MEDS: ONDANSETRON 4 MG/2 ML VIAL IVP ONE (06:50)
[2025-02-13] MEDS: IV FLUID CONTINUATION 1,000 ML IV ONE (06:50)
[2025-02-13] MEDS: LIDOCAINE 1% (10MG/ML) FOR IV START INTRADERMA STA (06:50)
[2025-02-13] MEDS ORDERED: HYDROmorphone 0.5 MG/0.5 ML SYRINGE IVP PRN (07:00)
[2025-02-13] MEDS: fentaNYL (PF) 50 MCG/ML 2 ML AMP IV PRN (07:03)
[2025-02-13] MEDS: MIDAZOLAM 2 MG/2 ML VIAL IV ONE (07:03)
[2025-02-13] MEDS: FAMOTIDINE 20 MG/2 ML VIAL IV STA (07:15)
[2025-02-13] MEDS ORDERED: MIDAZOLAM 2 MG/2 ML VIAL ONE (07:30)
[2025-02-13] MEDS ORDERED: LIDOCAINE 1% INJ 10MG/ML (20 ML MDV) ONE (07:30)
[2025-02-13] MEDS ORDERED: SUCCINYLCHOLINE CHLORIDE 200 MG/10 ML VIAL IV ONE (07:30)
[2025-02-13] MEDS ORDERED: PROPOFOL 10 MG/ML 20 ML VIAL IV ONE (07:30)
[2025-02-13] MEDS: ceFAZolin 2 GM in DEXTROSE 5% IN WATER 50 ML IVPB PRN (07:30)
[2025-02-13] MEDS ORDERED: GLYCOPYRROLATE 0.2 MG/ML 2 ML VIAL ONE (07:30)
[2025-02-13] MEDS ORDERED: DEXAMETHASONE SOD PHOSPHATE 4 MG/ML 1 ML VIAL ONE (07:30)
[2025-02-13] MEDS ORDERED: ROPIVACAINE 5 MG/ML 30 ML VIAL ONE (07:30)
[2025-02-13 08:41] VITALS: TEMP 96.8
--- NOTE | 2025-02-13 10:52 | P.ANPRN ---
Procedure Note - Anesthesia - Nerve Block Performed Right Interscalene Single Time Out Performed: Yes ([id number]) Date of Procedure: 02/13/25 Procedure Start Time: :04 Procedure Stop Time: 07:09 Location of Patient: PreOp Indication: Acute Post-Operative Pain, Requested by Surgeon Specifically requested for management of pain by DrHernando: Aaron Gregorio Sedation Type: Sedate with meaningful contact maintained Preparation: Sterile Prep Position: Supine Catheter: None Needle Types: Pajunk Needle Gauge: 21 Ultrasound used to visualize needle placement: Yes Ultrasound used to observe medication spread: Yes Injectate: 0.5% Ropivacaine (see comment for volume) (30cc + decadron 4mg) Blood Aspirated: No Pain Paresthesia on Injection Noted: No Resistance on Injection: Normal Image Stored and Saved: Yes Events: Uneventful and Well Tolerated
[2025-02-13 12:09] VITALS: RESP 16
--- NOTE | 2025-02-13 12:25 | P.CRDCN ---
History of Present Illness History of present illness: HISTORY OF PRESENTING ILLNESS This is a pleasant 69-year-old male past medical history significant for hypertension, dyslipidemia, acid reflux and degenerative joint disease. 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 We have been asked to see in consultation for abnormal EKG. He was brought for an elective right shoulder repair with Dr. Gregorio. Preoperative EKG reveals sinus bradycardia with no acute ST or T wave abnormalities. Apparently he was intubated and anesthesia was being initiated and it was noted on telemetry tracings he had some ST elevation. Unfortunately they were unable to capture any rhythm strips for us to review. Anesthesia was discontinued, patient was extubated and taken back to recovery. EKG in recovery room reveals sinus bradycardia heart rate of [address] or T wave abnormalities noted. The patient is very active a former runner and exercises regularly at home. He denies ever having symptoms of chest discomfort or shortness of breath. Blood pressure is stable. He takes losartan and rosuvastatin at home. He has never had a stress test, cardiac catheterization or echocardiogram. REVIEW OF SYSTEMS At the time of my exam: CONSTITUTIONAL: Denies fever or chills. CARDIOVASCULAR: Denies chest pain, shortness of breath, orthopnea, PND or palpitations. RESPIRATORY: Denies cough. GASTROINTESTINAL: Denies abdominal pain, diarrhea, constipation, nausea or vo miting. MUSCULOSKELETAL: Denies myalgias. NEUROLOGIC: Denies numbness, tingling, headache or weakness. ENDOCRINE: Denies fatigue, weight change, polydipsia or polyurina. GENITOURINARY: Denies burning, hematuria or urgency with micturation. HEMATOLOGIC: Denies history of anemia or bleeding. PHYSICAL EXAMINATION Blood pressure 145/67 heart rate 52 afebrile and maintaining oxygen saturation on room air. CONSTITUTIONAL: No apparent distress. HEENT: Head is normocephalic. Pupils are equal, round. Sclerae anicteric. Mucous membranes of the mouth are moist. No JVD. No carotid bruit. CHEST EXAMINATION: Lungs are clear to auscultation. No chest wall tenderness is noted on palpation or with deep breathing. HEART EXAMINATION: Regular rate and rhythm. S1, S2 heard. No murmurs, gallops or rub. ABDOMEN: Soft, nontender. EXTREMITIES: 2+ peripheral pulses, no lower extremity edema and no calf tenderness. NEUROLOGIC EXAMINATION: Patient is awake, alert and oriented x3. ASSESSMENT Abnormal EKG after anesthesia administration Hypertension Dyslipidemia Right shoulder impingement with rotator cuff tear PLAN Obtain 2D echocardiogram and Doppler study to assess cardiac structure and function. Once echo is obtained and reviewed he can go home. We will schedule him for an outpatient stress test next week at the hospital. We will do a Lexiscan stress test in case there is any left bundle branch block present. No beta-blockers secondary to low resting heart rate. Thank you kindly for this consultation we will continue to follow with this patient in the office. Once stress testing is complete and patient is seen in the office we will send a letter to Dr. Gregorio in terms of surgery rescheduling. Nurse Practitioner note has been reviewed, I agree with a documented findings and plan of care. Patient was seen and examined. Past Medical History Past Medical History: Cancer, GERD/Reflux, Hyperlipidemia, Hypertension, Skin Disorder, Sleep Apnea/CPAP/BIPAP Additional Past Medical History / Comment(s): hx. prostate cancer 2008-no radiation, no chemo, DDD, had surg. for sleep apnea. Arthritis. Current rash to genital area r/t irritation from bladder incontinence post radical prostatectomy. History of Any Multi-Drug Resistant Organisms: None Reported Past Surgical History: Appendectomy, Hernia Repair, Orthopedic Surgery, Prostate Surgery, Tonsillectomy Additional Past Surgical History / Comment(s): UPP for sleep apnea, radical prostatectomy, urethral sling,lt thumb surg., deviated septum. Colonoscopy. Vasectomy Past Anesthesia/Blood Transfusion Reactions: No Reported Reaction Additional Past Anesthesia/Blood Transfusion Reaction / Comment(s): No hx of blood transfusion to date. Smoking Status: Former smoker - Past Family History Father Family Medical History: Cancer Mother Family Medical History: Congestive Heart Failure (CHF), CVA/TIA Sister(s) Family Medical History: Cancer Additional Family Medical History / Comment(s): breast cancer Brother(s) Family Medical History: Cancer Additional Family Medical History / Comment(s): Prostate cancer Medications and Allergies Home Medications Medication Instructions Recorded Confirmed Type Ascorbic Acid [Vitamin C] 500 mg PO QAM 10/13/17 02/08/25 History Cholecalciferol [Vitamin D3 (25 1,000 unit PO QAM 10/13/17 02/08/25 History Mcg = 1000 Iu)] Losartan [Cozaar] 100 mg PO QAM 01/27/23 02/08/25 History Rosuvastatin [Crestor] 10 mg PO QAM 01/27/23 02/08/25 History Advil(Unknown Dose) 1 dose PO DIRECTED PRN 02/08/25 02/08/25 History Miconazole 2% Vaginal Cream 1 applicator TOPICAL BID PRN 02/08/25 02/08/25 History [Monistat 7] Omeprazole [PriLOSEC] 40 mg PO QAM 02/08/25 02/08/25 History Sucralfate [Carafate] 1 gm PO BID 02/08/25 02/08/25 History Vitafusion(Unknown Dose) 1 dose PO QAM 02/08/25 02/08/25 History Allergies Allergy/AdvReac Type Severity Reaction Status Date / Time No Known Allergies Allergy Verified 02/13/25 06:28 Physical Exam Vitals: Vital Signs Temp Pulse Resp BP BP Pulse Ox 02/13/25 12:00 52 L 16 145/67 96 02/13/25 11:30 43 L 18 132/63 95 02/13/25 11:00 51 L 16 151/65 96 02/13/25 10:30 44 L 16 147/66 96 02/13/25 09:56 47 L 16 153/67 96 02/13/25 09:37 39 L 16 129/60 96 02/13/25 09:21 59 L 16 132/64 96 02/13/25 09:06 52 L 16 130/61 96 02/13/25 08:51 55 L 16 141/65 96 02/13/25 08:36 60 16 136/66 97 02/13/25 08:21 56 L 16 123/70 96 02/13/25 08:06 96.8 F L 54 L 14 107/54 97 02/13/25 07:10 51 L 16 158/75 98 02/13/25 06:50 97.4 F L 53 L 16 164/71 99 Intake and Output 02/12/25 02/13/25 02/13/25 22:59 06:59 14:59 Intake Total 200 450 Output Total 1570 Balance 200 -1120 Intake: IV 200 450 Output: Urine 1570 Other: Weight 79.7 kg Results Current Medications Generic Name Dose Route Start Last Admin Trade Name Freq PRN Reason Stop Dose Admin Hydromorphone HCl 0.5 mg 02/13/25 07:00 Hydromorphone 0.5 Mg/0.5 Ml Syringe IVP 02/13/25 23:00 Q5M PRN Phase 1 or 2 - Pain Control Lactated Ringer's 1,000 mls @ 20 mls/hr 02/13/25 05:48 02/13/25 06:50 Lactated Ringers IV 03/15/25 05:47 20 mls/hr .Q24H ROBERT Administration Intake and Output 02/12/25 02/13/25 02/13/25 22:59 06:59 14:59 Intake Total 200 450 Output Total 1570 Balance 200 -1120 Intake: IV 200 450 Output: Urine 1570 Other: Weight 79.7 kg
--- NOTE | 2025-02-13 12:30 | CA ---
Transthoracic Echo Report Name: Gilmar Greco Age: 69 Gender: M : 1955 Exam Date: 02/13/2025 10:35 Exam Location: [facility] Ht (in): 69 Wt (lb): 175 Ordering Physician: Shikha Jolly Attending/Referring Phys: [id number], Shanae Trucking Supervisor Mona Weathers, LES Procedure CPT: Indications: abd ekg Cardiac Hx: Technical Quality: Good Contrast 1: Total Dose (mL): Contrast 2: Total Dose (mL): MEASUREMENTS (Male / Female) Normal Values 2D ECHO LV Diastolic Diameter PLAX 4.2 cm 4.2 - 5.9 / 3.9 - 5.3 cm LV Systolic Diameter PLAX 2.6 cm IVS Diastolic Thickness 1.3 cm 0.6 - 1.0 / 0.6 - 0.9 cm LVPW Diastolic Thickness 1.3 cm 0.6 - 1.0 / 0.6 - 0.9 cm LV Relative Wall Thickness 0.6 RV Internal Dim ED PLAX 3.6 cm LA Systolic Diameter LX 3.5 cm 3.0 - 4.0 / 2.7 - 3.8 cm LV Diastolic Volume MOD 4C 123.6 cm??? LV Systolic Volume MOD 4C 41.7 cm??? LV Ejection Fraction MOD 4C 66.2 % LV Cardiac Index MOD 4C 2194.6 cm???/min???m??? LV Diastolic Length 4C 8.0 cm LV Systolic Length 4C 5.9 cm LV Diastolic Volume MOD 2C 81.4 cm??? LV Systolic Volume MOD 2C 27.0 cm??? LV Ejection Fraction MOD 2C 66.8 % LV Cardiac Index MOD 2C 1458.3 cm???/min???m??? LV Diastolic Length 2C 8.7 cm LV Systolic Length 2C 6.9 cm LA Volume 62.4 cm??? 18 - 58 / 22 - 52 cm??? LA Volume Index 31.6 cm???/m??? 16 - 28 cm???/m??? M-MODE Aortic Root Diameter MM 3.4 cm AV Cusp Separation MM 2.4 cm DOPPLER AV Peak Velocity 141.3 cm/s AV Peak Gradient 8.0 mmHg MV Area PHT 4.3 cm??? Mitral E Point Velocity 95.0 cm/s Mitral A Point Velocity 82.6 cm/s Mitral E to A Ratio 1.2 MV Deceleration Time 175.5 ms FINDINGS Left Ventricle Left ventricular ejection fraction is estimated at 55-60 %. Left ventricular cavity size normal. Mildly increased septal wall thickness. Normal left ventricular wall motion. Right Ventricle Mild right ventricular dilatation. Unable to estimate the right ventricular systolic pressure. Right Atrium Normal right atrial size. No right atrial thrombus or mass seen. Left Atrium Mildly increased left atrial volume. No left atrial thrombus or mass present. Mitral Valve Elongation of the anterior mitral valve leaflet. Mild mitral regurgitation. Aortic Valve Trileaflet aortic valve. Thickened aortic valve without stenosis. Tricuspid Valve Structurally normal tricuspid valve. No tricuspid stenosis, regurgitation or prolapse. Pulmonic Valve Pulmonic valve not well visualized. Pericardium No pericardial effusion. Aorta Normal size aortic root and proximal ascending aorta. CONCLUSIONS Normal LV size and systolic function. No wall motion abnormality. There is aortic valve sclerosis and mild mitral annular calcification. Mild mitral and tricuspid regurgitation. Could not estimate right-sided pressures. No pericardial effusion Previewed by: Dr. Barbie Ventura MD (Electronically Signed) Final Date: 13 Feb 2025 12:29
[2025-02-13 12:49] VITALS: BP 164/79; PULSE 52
== END 2025-02-13 13:19 | disposition home or self-care (01) ==
LOC: OR 05:49
PROVIDERS: ATTEND Orthopaedic Surgery
DX: M75.101 Unspecified rotator cuff tear or rupture of right shoulder, not specified as traumatic (principal); Z53.8 Procedure and treatment not carried out for other reasons; R94.31 Abnormal electrocardiogram [ECG] [EKG]; M19.011 Primary osteoarthritis, right shoulder; S46.111A Strain of muscle, fascia and tendon of long head of biceps, right arm, initial encounter; M75.41 Impingement syndrome of right shoulder; G89.18 Other acute postprocedural pain; I10 Essential (primary) hypertension; E78.5 Hyperlipidemia, unspecified; R00.1 Bradycardia, unspecified; I44.7 Left bundle-branch block, unspecified; I08.3 Combined rheumatic disorders of mitral, aortic and tricuspid valves; K21.9 Gastro-esophageal reflux disease without esophagitis; R32 Unspecified urinary incontinence; Z79.899 Other long term (current) drug therapy; Z87.891 Personal history of nicotine dependence; Z85.46 Personal history of malignant neoplasm of prostate; Z82.49 Family history of ischemic heart disease and other diseases of the circulatory system
CPT/HCPCS: 29827; 93306; 64415; J2250; J0330; J1100; J0690; J2405; J2003; J3010; J2795; J2704; J1596; J1308

== ENCOUNTER → 2025-02-19 | Outpatient (CLI) | payer MEDICARE, OTHER ==
[~2025-02-19] MED LIST changes: +AMINOPHYLLINE 500 MG/20 ML VIAL IV PRN; -HEPARIN SODIUM,PORCINE 5,000 UNIT/ML 1 ML VIAL SQ ONE; -HYDROmorphone 0.5 MG/0.5 ML SYRINGE IVP PRN; -MORPHINE SULFATE 4 MG/ML SYRINGE IV PRN; +REGADENOSON 0.4 MG/5 ML SYRINGE IV PRN; -ceFAZolin IN SWFI 2 GM/20 ML SYRINGE IVP ONE
--- NOTE | 2025-02-19 12:32 | NM ---
EXAMINATION TYPE: NM stress lexiscan cardiolite DATE OF EXAM: 02/19/2025 COMPARISON: NONE CLINICAL INDICATION: Male, 69 years old with history of R00.1 BRADYCARDIA, UNSPECIFIED R94.31 ABNORMA L EKG; history of hypertension and hypercholesterolemia. TECHNIQUE: After the intravenous administration of 9.47 mCi Tc 99m Sestamibi - Cardiolite resting SP ECT images acquired 45 minutes post injection. The patient received 0.4mg Lexiscan, 23.5 mCi Tc 99m Sestamibi - Stress images obtained [address] injection FINDINGS: Review of stress and rest SPECT images demonstrates no distinct perfusion abnormality. Small area of diminished uptake in the septal wall on stress and rest images could reflect old infarct versus artif act. Gated analysis shows adequate wall motion with an estimated left ventricular ejection fraction o f 67 %. IMPRESSION: No scintigraphic evidence for reversible ischemia. [facility], , 02/19/2025 12:30 PM
--- NOTE | 2025-02-19 15:04 | CA ---
Lexiscan Nuclear Stress Test Report Name: Gilmar Greco Exam Date: 02/19/2025 10:54 Exam Location: [facility] Ht (in): 69 Wt (lb): 170 BSA: 1.93 Ordering Phys: Junaid Ventura MD Referring Phys: Junaid Ventura MD Technologist: Miguel Walton Age: 69 Gender: M : 1955 Procedure CPT: Indications: R00.1 R94.31 ICD-10 Codes: Patient History: Medications: LOSARTAN, OMERPERAZOLE, ROSUVASTATIN, CARAFATE Meds past 24 hrs: Pretest Chest Pain: STRESS TEST Lexiscan Protocol Exercise Duration (min:sec): 02:[address] Depressions (mm): Angina Score: Shirley Score: Resting HR (bpm): 55 Peak HR (bpm): 63 Resting BP (mmHg): 161 / 81 Peak BP (mmHg): / 93 MPHR: 151 Target HR: 128 % MPHR: 42 METS: 1.0 Total Dose: Peak Dose: Atropine: Double Product: BP Response: Stress Termination: INFUSION COMPLETE Stress Symptoms: NO SYMPTOMS Stress Summary: ECG ANALYSIS Resting ECG: Stress ECG: CONCLUSIONS Reason for test Abnormal EKG hypertension dyslipidemia Lexiscan Cardiolite stress test does not show any evidence for ischemia. Occasional PVCs noted Nuclear portion will be reported separately Dr. Hussain Nguyen MD (Electronically Signed) Final Date: 19 Feb 2025 15:03
== END | disposition home or self-care (01) ==
LOC: RADNMMAIN 08:35
PROVIDERS: ATTEND Internal Medicine Pulmonary Disease
DX: I49.3 Ventricular premature depolarization (principal); R00.1 Bradycardia, unspecified; R94.31 Abnormal electrocardiogram [ECG] [EKG]
CPT/HCPCS: 93017; 78452; A9500; J2785

== ENCOUNTER → 2025-03-26 | Outpatient (CLI) | payer MEDICARE, OTHER ==
[2025-03-26 15:04] LABS: Basophils # (A) 0.02 X 10*3/uL (0.00-0.10); Basophils % (A) 0.3 %; Eosinophils # (A) 0.05 X 10*3/uL (0.04-0.35); Eosinophils % (A) 0.8 %; HCT 40.4 % (39.6-50.0); HGB 13.5 g/dL (13.0-17.0); Lymphocytes # (A) 1.02 X 10*3/uL (0.90-5.00); Lymphocytes % (A) 15.7 %; MCHC 33.4 g/dL (32.0-37.0); MCV 83.6 FL (80.0-97.0); Mean Platelet Volume 10.3 FL (9.5-12.2); Monocytes # (A) 0.64 X 10*3/uL (0.20-1.00); Monocytes % (A) 9.8 %; NRBC Per 100 WBC 0 X 10*3/uL (0.00-0.01); Neutrophils # (A) 4.72 X 10*3/uL (1.80-7.70); Neutrophils % (A) 72.6 %; Platelet Count 158 X 10*3/uL (140-440); RBC 4.83 X 10*6/uL (4.40-5.60); RDW 13.2 % (11.5-14.5)
[2025-03-26 15:21] LABS: Anion Gap 10.4 mmol/L (4.00-12.00); Carbon Dioxide 25.6 mmol/L (21.6-31.8); Potassium 4.4 mmol/L (3.5-5.5)
== END | disposition home or self-care (01) ==
LOC: LABPAT 08:27
PROVIDERS: ATTEND Orthopaedic Surgery
DX: Z01.812 Encounter for preprocedural laboratory examination (principal); M75.41 Impingement syndrome of right shoulder
CPT/HCPCS: 80051; 85025

== ENCOUNTER 2025-04-04 09:44 | Day surgery (SDC) | payer MEDICARE, OTHER ==
[2025-04-02 13:38] VITALS: BMI 25.8
--- NOTE | 2025-04-03 13:51 | HP ---
HISTORY AND PHYSICAL Surgery is scheduled for 04/04/2025. HISTORY OF PRESENT ILLNESS: Gilmar Greco is a 69-year-old gentleman, seen with progressive right shoulder pain. We discussed options regarding treatment. He elected to proceed with right shoulder arthroscopy. Consent regarding the procedure was obtained. Cardiac clearance was provided. PAST MEDICAL HISTORY: Cardiovascular disease. PAST SURGICAL HISTORY: Appendectomy, hand surgery, herniorrhaphy, tonsillectomy. DAILY MEDICATIONS: 1. Advil. 2. Losartan. ALLERGIES: None. SOCIAL HISTORY: Denies current tobacco use. PHYSICAL EVALUATION OF THE RIGHT SHOULDER: Flexion is 140 degrees. Abduction is 120 degrees. External rotation is 40 degrees with pain, weakness, tenderness along the anterolateral acromion, rotator cuff insertion site, acromioclavicular joint, long head biceps tendon. Impingement positive at 90 degrees. Drop-arm sign is positive. Cross-body adduction sign is positive. Distal neurovascular exam is intact. IMAGING STUDIES: Right shoulder radiographs revealed a type 2 acromion, acromioclavicular joint osteoarthritis and cystic changes of the tuberosity. MRI of the right shoulder revealed a partial rotator cuff tendon tear, acromioclavicular joint osteoarthritis and partial long head biceps tendon tear. IMPRESSION: 1. Right shoulder impingement with rotator cuff tear. 2. Right shoulder acromioclavicular joint osteoarthritis. 3. Right shoulder partial biceps tendon tear. 4. Hypertension. PLAN: Right shoulder arthroscopy with subacromial decompression, arthroscopic rotator cuff repair, Radha procedure, biceps tenodesis, and debridement. MMODL / IJN: [id number] /
[~2025-04-04 09:44] MED LIST changes: -AMINOPHYLLINE 500 MG/20 ML VIAL IV PRN; +HYDROmorphone 0.5 MG/0.5 ML SYRINGE IVP PRN; +LIDOCAINE 1% (10MG/ML) FOR IV START INTRADERMA PRN; -REGADENOSON 0.4 MG/5 ML SYRINGE IV PRN; +droPERidol 2.5 MG/ML VIAL IVP ONE
[2025-04-04] MEDS: IV FLUID CONTINUATION 1,000 ML IV ONE ×2 (10:02→14:19)
[2025-04-04] MEDS: ONDANSETRON 4 MG/2 ML VIAL IVP ONE (10:33)
[2025-04-04] MEDS: DEXAMETHASONE SOD PHOSPHATE 4 MG/ML 1 ML VIAL IV ONE (10:33)
[2025-04-04] MEDS: LACTATED RINGERS 1,000 ML IV SCH (10:34)
[2025-04-04] MEDS: MIDAZOLAM 2 MG/2 ML VIAL IV STA (10:38)
[2025-04-04] MEDS ORDERED: PROPOFOL 10 MG/ML 20 ML VIAL IV ONE (11:05)
[2025-04-04] MEDS ORDERED: MIDAZOLAM 2 MG/2 ML VIAL ONE (11:05)
[2025-04-04] MEDS ORDERED: fentaNYL (PF) 50 MCG/ML 2 ML AMP ONE (11:05)
[2025-04-04] MEDS ORDERED: LIDOCAINE 1% INJ 10MG/ML (20 ML MDV) ONE (11:05)
[2025-04-04] MEDS ORDERED: ROPIVACAINE 5 MG/ML 30 ML VIAL ONE (11:05)
[2025-04-04] MEDS ORDERED: SUCCINYLCHOLINE CHLORIDE 200 MG/10 ML VIAL IV ONE (11:05)
[2025-04-04] MEDS ORDERED: ePHEDrine 50 MG/ML 1 ML VIAL ONE (11:05)
[2025-04-04] MEDS ORDERED: DEXAMETHASONE SOD PHOSPHATE 4 MG/ML 1 ML VIAL ONE (11:05)
[2025-04-04] MEDS: LACTATED RINGERS 1,000 ML IV ONE (12:44)
[2025-04-04 13:04] VITALS: TEMP 97.4
--- NOTE | 2025-04-04 13:06 | P.OP ---
Date of Procedure: 04/04/25 Preoperative Diagnosis: Right shoulder impingement Postoperative Diagnosis: 1. Right shoulder rotator cuff tear 2. Right shoulder impingement 3. Right shoulder partial long head biceps tendon tear 4. Right shoulder acromioclavicular joint osteoarthritis 5. Right shoulder superficial labral tear Procedure(s) Performed: 1. Right shoulder arthroscopic rotator cuff repair 2. Right shoulder arthroscopic subacromial decompression 3. Right shoulder arthroscopic biceps tenodesis 4. Right shoulder arthroscopic Radha procedure 5. Right shoulder arthroscopic debridement labral tear Implants: 5Arthrex 4.75 swivel lock anchors Anesthesia: GETA, regional (Interscalene block) Surgeon: Aaron Gregorio Receiving Associate Store #1: Jaiden Thompson Estimated Blood Loss (ml): 9 Pathology: none sent Condition: stable Disposition: PACU Indications for Procedure: 69-year-old patient seen with progressive right shoulder pain. After having treatment options discussed, he elected to proceed with arthroscopy. Operative Findings: See description of procedure Description of Procedure: Patient underwent an interscalene block by department of anesthesia. The patient was then taken to the operative suite. The patient underwent a general anesthetic by the department of anesthesia. The patient was placed into a lateral position and secured. There was appropriate padding of the bony prominence. Right shoulder was then prepped and draped in normal sterile orthopedic fashion. We placed the extremity in 10 pounds of longitudinal traction. A posterior incision was now made for a posterior working portal site. The trocar and cannula were inserted into the glenohumeral joint. Arthroscopy was initiated. Spinal needle was now inserted anteriorly, to ascertain the anterior working portal site. An incision was now made in that area, a trocar was inserted followed by a probe. There was superficial tearing of the labrum. There were grade I chondromalacia changes of the glenoid fossa. There was partial tearing and hyperemia long head biceps tendon. I reduced a motorized shaver and debrided out the superficial labral tear getting down to stable labral tissue. I placed a cannula through the anterior portal site. I passed a loop and tack stitch through the biceps tendon and then released it from the superior labral anchor. With the assistance of Wellington GUERRIER partial hole at the interval for insertion of an anchor. The suture line was not passed through the eyelet of an Arthrex 4.75 swivel lock anchor. I placed the eyelet into the prepunched hole. I held it in position while Wellington GUERRIER tensioned the suture and deployed the anchor with good fixation noted. The residual suture limb was clipped. We had a stable appearing biceps tenodesis. The residual l abrum was probed and was found to be stable. Instruments were now removed from the glenohumeral joint. Utilizing the posterior working portal site, the trocar and cannula were inserted into the subacromial space. Arthroscopy initiated. I made an incision 2 fingerbreadths lateral to the acromion. I introduced my trocar followed by my ArthroCare ablator. I now began ablating thick subacromial bursal tissue, which exposed the undersurface of the anterior acromion. There was diminished subacromial space. There was a very prominent anterior acromion. A motorized bur was introduced and a subacromial decompression was performed. I also excised some osteophytes off the inferior aspect of the distal clavicle. The AC joint was visualized and noted to be fairly arthritic. The motorized bur was int roduced in the anterior portal site and a Radha procedure was performed without difficulty, decompressing the AC joint nicely. I turned my attention to the rotator cuff. There was a 3 cm rotator cuff tear. I debrided the margins getting down to stable tendon tissue. I introduced my motorized bur and abraded the footprint area, getting some petechial bleeding. I now made an accessory portal site off the lateral aspect of the acromion. I punched 2 holes medial for medial row fixation with the assistance of Wellington GUERRIER carefully tapping the punch with a mallet as I held the punch and the camera. I now introduced both anchors into the pre-punched holes and Wellington GUERRIER tapped them with the mallet as I held anchors and the camera. Wellington GUERRIER now screwed the anchors in place a while I held the anchor guide and camera. All 8 limbs of suture were now passed through good bites of rotator cuff tendon. I now punched 2 holes for lateral row fixation again I held the punch and camera while Wellington GUERRIER used a mallet to tap in the punch. We now passed sutures through both anchors and individually I introduced the anchors into the pre-punch holes I held the anchor guide in position with one hand holding the camera with the other hand while Wellington GUERRIER tensioned the sutures and screwed in the anchors one at a time. All residual suture limbs were now clipped. We had good compression of the tendon along the entire footprint. Instruments now removed from the portal sites. All portal sites were approximated with nylon suture. Sterile dressings were applied followed by a shoulder immobilizer. Jaiden GUERRIER assisted in this complex case. The patient was awakened, transferred to a bed, and taken to recovery in stable condition.
[2025-04-04 14:27] VITALS: RESP 18
[2025-04-04 14:47] VITALS: BP 159/89; PULSE 89
--- NOTE | 2025-04-05 06:49 | P.ANPRN ---
Procedure Note - Anesthesia - Nerve Block Performed Right Interscalene Single Time Out Performed: Yes Date of Procedure: 04/04/25 Procedure Start Time: 10:38 Procedure Stop Time: 10:45 Location of Patient: PreOp Indication: Acute Post-Operative Pain, Requested by Surgeon Sedation Type: Sedate with meaningful contact maintained Preparation: Sterile Prep Position: Supine Needle Types: Pajunk Needle Gauge: 21 Ultrasound used to visualize needle placement: Yes Ultrasound used to observe medication spread: Yes Blood Aspirated: No Pain Paresthesia on Injection Noted: No Resistance on Injection: Normal Image Stored and Saved: Yes Events: Uneventful and Well Tolerated (Ropivacaine 0.5% 20 cc plus dexamethasone 4 mg)
== END 2025-04-04 15:07 | disposition home or self-care (01) ==
LOC: OR 09:44
PROVIDERS: ATTEND Orthopaedic Surgery
DX: S46.211A Strain of muscle, fascia and tendon of other parts of biceps, right arm, initial encounter (principal); M75.101 Unspecified rotator cuff tear or rupture of right shoulder, not specified as traumatic; M19.011 Primary osteoarthritis, right shoulder; I25.10 Atherosclerotic heart disease of native coronary artery without angina pectoris; I10 Essential (primary) hypertension; E78.5 Hyperlipidemia, unspecified; G47.33 Obstructive sleep apnea (adult) (pediatric); Z01.810 Encounter for preprocedural cardiovascular examination; Z90.49 Acquired absence of other specified parts of digestive tract; Z90.89 Acquired absence of other organs; Z98.890 Other specified postprocedural states; Z79.899 Other long term (current) drug therapy; X58.XXXA Exposure to other specified factors, initial encounter
CPT/HCPCS: 64415; 29828; 29827; 29826; 29824; C1713 ×4; J2250; J0330; J1100; J0690; J2405; J2003; J3010; J2795; J2704